=== PATIENT | female | born 1960 | race Caucasian/White ===

== ENCOUNTER 2018-05-05 14:49 | Emergency (ER) | payer OTHER | END 2018-05-05 17:10 | disposition home or self-care (01) | LOC: FTE 14:49 | DX: S93.601A Unspecified sprain of right foot, initial encounter (principal); I10 Essential (primary) hypertension; E66.01 Morbid (severe) obesity due to excess calories; X58.XXXA Exposure to other specified factors, initial encounter; Y92.9 Unspecified place or not applicable; Z68.39 Body mass index [BMI] 39.0-39.9, adult; Z79.82 Long term (current) use of aspirin | CPT/HCPCS: 73630; 93971; 99284-25 ==